=== PATIENT | female | born 1960 | race Caucasian/White ===

== ENCOUNTER 2021-10-21 11:50 | Emergency (ER) | payer OTHER, BC ==
[2021-10-21] MEDS ORDERED: Lidocaine 1% w/Epinephrine 1:100K 20 ML VIAL ONE (13:09)
[2021-10-21] MEDS ORDERED: Bacitracin 1 PK ONE (13:24)
[2021-10-21] MEDS ORDERED: Fentanyl 100 MCG/2 ML VIAL ONE (13:26)
[2021-10-21] MEDS ORDERED: Boostrix 0.5 ML (Tdap) VIAL ONE (13:27)
== END 2021-10-21 14:45 | disposition home or self-care (01) ==
LOC: CSHERS 11:50
DX: S81.011A Laceration without foreign body, right knee, initial encounter (principal); S51.801A Unspecified open wound of right forearm, initial encounter; W01.0XXA Fall on same level from slipping, tripping and stumbling without subsequent striking against object, initial encounter; Z23 Encounter for immunization
CPT/HCPCS: 12004; 90471; 90715; 96365; 96375; J0690; J3010

== ENCOUNTER 2022-03-31 10:02 | Outpatient (CLI) | payer BC ==
[2022-03-31 19:53] LABS: SARS-CoV-2 PCR by NAA Not Detected (NotDetected)
== END 2022-03-31 10:03 | disposition home or self-care (01) ==
LOC: CSHLAB 10:02
PROVIDERS: ATTEND Internal Medicine Gastroenterology
DX: Z20.822 Contact with and (suspected) exposure to COVID-19 (principal); K63.5 Polyp of colon
CPT/HCPCS: U0003; U0005

== ENCOUNTER 2022-04-03 10:16 | Day surgery (SDC) | payer BC ==
[2022-04-01 11:16] VITALS: BMI 40.6
[2022-04-03] MEDS ORDERED: Lidocaine 1% MPF 2 ML VIAL ONE (10:59)
[2022-04-03] MEDS ORDERED: PROPOFOL 40 ML ONE (12:12)
[2022-04-03] MEDS ORDERED: Lidocaine 1% PF 5 ML VIAL ONE (12:18)
[2022-04-03] MEDS ORDERED: PROPOFOL 20 ML ONE (12:47)
== END 2022-04-03 13:21 | disposition home or self-care (01) ==
LOC: CSHSDC 10:16
PROVIDERS: ATTEND Internal Medicine Gastroenterology
PROC: 0DBN8ZZ Excision of Sigmoid Colon, Via Natural or Artificial Opening Endoscopic (ICD-10-PCS; principal; 2022-04-03)
DX: Z12.11 Encounter for screening for malignant neoplasm of colon (principal); K63.5 Polyp of colon; K57.30 Diverticulosis of large intestine without perforation or abscess without bleeding; K64.8 Other hemorrhoids; E66.9 Obesity, unspecified; G47.30 Sleep apnea, unspecified; I10 Essential (primary) hypertension; E78.5 Hyperlipidemia, unspecified; F32.A Depression, unspecified; F17.210 Nicotine dependence, cigarettes, uncomplicated
CPT/HCPCS: 88305; J2704

== ENCOUNTER 2022-10-08 13:10 | Outpatient (CLI) | payer BC | END 2022-10-08 13:11 | disposition home or self-care (01) | LOC: CSHRAD 13:10 | PROVIDERS: ATTEND Internal Medicine | DX: M25.572 Pain in left ankle and joints of left foot (principal); M79.89 Other specified soft tissue disorders; M77.32 Calcaneal spur, left foot ==

== ENCOUNTER 2023-03-10 08:30 | Outpatient (CLI) | payer BC | END 2023-03-10 08:31 | disposition home or self-care (01) | LOC: CSHCT 08:30 | PROVIDERS: ATTEND Internal Medicine | DX: Z12.2 Encounter for screening for malignant neoplasm of respiratory organs (principal); F17.210 Nicotine dependence, cigarettes, uncomplicated | CPT/HCPCS: 71271 ==

== ENCOUNTER 2023-04-07 09:26 | Outpatient (CLI) | payer BC | END 2023-04-07 09:27 | disposition home or self-care (01) | LOC: CSHMAMMO 09:26 | PROVIDERS: ATTEND Internal Medicine | DX: Z12.31 Encounter for screening mammogram for malignant neoplasm of breast (principal); M85.80 Other specified disorders of bone density and structure, unspecified site; Z78.0 Asymptomatic menopausal state | CPT/HCPCS: 77063; 77067; 77080 ==

== ENCOUNTER 2024-05-03 10:04 | Outpatient (CLI) | payer MEDICARE | END 2024-05-03 10:05 | disposition home or self-care (01) | LOC: CSHMAMMO 10:04 | PROVIDERS: ATTEND Internal Medicine | DX: Z12.31 Encounter for screening mammogram for malignant neoplasm of breast (principal) | CPT/HCPCS: 77063; 77067 ==